=== PATIENT | female | born 1980 | race African-American/Black ===

== ENCOUNTER 2018-07-06 05:54 | Observation (INO) | payer OTHER ==
[2018-07-06] VITALS (8 sets, daily range): BP systolic 121–148; BP diastolic 54–90
[~2018-07-06] VITALS: Ht 177.8 cm; Wt 107.5 kg
[2018-07-06 06:28] LABS: BASOPHILS % 0.5 % (0.0-1.0); EOSINOPHILS # (AUTO) 0.2 (0.0-0.4); EOSINOPHILS % 3.8 % (0.0-6.0); LYMPHOCYTES # (AUTO) 1.4 (1.0-3.2); LYMPHOCYTES % 32.2 % (18.0-39.1); MEAN CORPUSCULAR HEMOGLOBIN 16.5 pg (28-32); MEAN CORPUSCULAR HGB CONC 25.6 g/dL (31-35); MEAN CORPUSCULAR VOLUME 64.2 fL (81-99); MONOCYTES # (AUTO) 0.4 (0.2-0.8); MONOCYTES % 9.9 % (4.4-11.3); NEUTROPHILS # (AUTO) 2.3 (2.1-6.9); NEUTROPHILS % 53.1 % (38.7-80.0); PLATELET COUNT 528 x10e3/uL (140-360); RED CELL DISTRIBUTION WIDTH 20.6 % (11.7-14.4)
[2018-07-06 06:31] LABS: HEMATOCRIT 19.9 % (34.2-44.1); HEMOGLOBIN 5.1 g/dL (12.0-16.0)
[2018-07-06] MEDS ORDERED: SODIUM CHLORIDE 0.9% 250ML 250 ML IV ONE (06:45)
[2018-07-06 06:51] LABS: ALANINE AMINOTRANSFERASE 11 IU/L (0-55); ALBUMIN 3.5 g/dL (3.5-5.0); ALBUMIN/GLOBULIN RATIO 1.2 (0.8-2.0); ALKALINE PHOSPHATASE 47 IU/L (40-150); ANION GAP 10.3 mmol/L (8-16); BLOOD UREA NITROGEN 7 mg/dL (7-26); BUN/CREATININE RATIO 9 (6-25); CALCIUM 8.9 mg/dL (8.4-10.2); CARBON DIOXIDE 24 mmol/L (22-29); CHLORIDE 107 mmol/L (98-107); CREATININE, SERUM 0.77 mg/dL (0.57-1.11); EST GLOMERULAR FILTRATION RATE > 60 ML/MIN (60-); GLUCOSE 87 mg/dL (74-118); POTASSIUM 3.3 mmol/L (3.5-5.1); SODIUM 138 mmol/L (136-145)
[2018-07-06 07:41] LABS: ANISOCYTOSIS MODERATE; EOSINOPHILS % (MANUAL) 4 % (0-7); HYPOCHROMASIA MODERATE; LYMPHOCYTES % (MANUAL) 24 % (19-48); MONOCYTES % (MANUAL) 10 % (3.4-9.0); NEUTROPHILS % (MANUAL) 62 % (40-74); PLATELET ESTIMATE SLIGHTLY INCREASED; PLATELET MORPHOLOGY COMMENT FEW GIANT; POIKILOCYTOSIS MODERATE; RBC MORPHOLOGY COMMENT ABNORMAL
--- NOTE | 2018-07-06 08:35 | NUR ---
Recvd patient from ER via stretcher, AAOx3, Denies any pain or SOB, skin intact, as per patient she actively not bleeding from anywhere. keep monitoring, call light in reach
--- NOTE | 2018-07-06 09:15 | NUR ---
1st unit of blood initiated , no reaction noted in first 15 min, patient resting in bed, keep monitoring
[2018-07-06] MEDS ORDERED: ONDANSETRON HCL INJ 2MG/ML 2ML 2 MG/ML VIAL IV PRN (11:45)
[2018-07-06] MEDS ORDERED: ACETAMINOPHEN 325 MG TAB PO PRN (11:45)
--- NOTE | 2018-07-06 12:05 | NUR ---
1st unit of blood finished, No adverse reaction noted, patient up in bed eating lunch, Dr Sethi here for rounds
[2018-07-06 12:11] LABS: % IRON SATURATION 2 % (15-50); IRON 11 ug/dL (50-170); TOTAL IRON BINDING CAPACITY 528 ug/dL (261-478); TRANSFERRIN 377 mg/dL (180-382)
[2018-07-06] MEDS ORDERED: POTASSIUM CHLORIDE 20 MEQ TAB CR PO NR (13:00)
[2018-07-06] MEDS ORDERED: SODIUM CHLORIDE 0.9% 250ML 250 ML ONE ×2 (13:46→20:24)
[2018-07-06] MEDS ORDERED: IRON SUCROSE 100 MG in SODIUM CHLORIDE 0.9% 100 ML 100 ML IV SCH (14:00)
--- NOTE | 2018-07-06 16:20 | NUR ---
2nd unit of blood finished , no adverse reaction noted.
[2018-07-06 18:44] LABS: HEMATOCRIT 23.3 % (34.2-44.1)
[2018-07-06 18:46] LABS: HEMOGLOBIN 6.5 g/dL (12.0-16.0)
--- NOTE | 2018-07-06 19:56 | NUR ---
REPORT RECEIVED FROM THE OUT GOING NURSE THAT HE SPOKE WITH DR BRENNAN REGARDING POST TRANSFUSION H&H RESULT OF 6.5&23.3, MD ORDER TO TRANSFUSED 1 MORE UNIT OF PRBC.
--- NOTE | 2018-07-06 20:40 | NUR ---
BLOOD TRANSFUSION STARTED, NO ADVERSE EFFECT OBSERVED. PRIMARY NURSE STAYED WITH THE PATIENT FOR CLOSE OBSERVATION PER PROTOCOL. WILL CONTINUE TO CLOSELY MONITOR.
--- NOTE | 2018-07-06 21:42 | NUR ---
PATIENT CONDITION STABLE WITHOUT DISTRESS, NO ADVERSE EFFECT OBSERVED WHILE BLOOD INFUSING.
--- NOTE | 2018-07-06 23:34 | NUR ---
BLOOD TRANSFUSION COMPLETED AT 2315, NO ADVERSE EFFECT OBSERVED AND PATIENT DENIES PAIN. CALL LIGHT WITHIN EASY REACH, SHE'S INSTRUCTED TO CALL FOR ASSISTANCE NEEDED.
--- NOTE | 2018-07-07 03:40 | NUR ---
PATIENT IS SOUNDLY ASLEEP, SHE'S EASY TO AROUSE. NO RESPIRATORY DISTRESS OBSERVED, SHE DENIES PAIN. CALL LIGHT WITHIN EASY REACH, INSTRUCTED TO CALL FOR ASSISTANCE NEEDED.
[2018-07-07 04:35] VITALS: BP 131/73
[2018-07-07 05:36] LABS: BASOPHILS % 0.7 % (0.0-1.0); EOSINOPHILS # (AUTO) 0.2 (0.0-0.4); EOSINOPHILS % 3.1 % (0.0-6.0); HEMATOCRIT 24.5 % (34.2-44.1); HEMOGLOBIN 7.1 g/dL (12.0-16.0); LYMPHOCYTES # (AUTO) 1.4 (1.0-3.2); LYMPHOCYTES % 25.9 % (18.0-39.1); MEAN CORPUSCULAR HEMOGLOBIN 19.9 pg (28-32); MEAN CORPUSCULAR VOLUME 68.6 fL (81-99); MONOCYTES # (AUTO) 0.6 (0.2-0.8); MONOCYTES % 11.3 % (4.4-11.3); NEUTROPHILS # (AUTO) 3.2 (2.1-6.9); NEUTROPHILS % 58.3 % (38.7-80.0); PLATELET COUNT 431 x10e3/uL (140-360); RED BLOOD COUNT 3.57 x10e6/uL (3.6-5.1); RED CELL DISTRIBUTION WIDTH 23.4 % (11.7-14.4)
[2018-07-07 05:57] LABS: ALANINE AMINOTRANSFERASE 6 IU/L (0-55); ALBUMIN 3.1 g/dL (3.5-5.0); ALBUMIN/GLOBULIN RATIO 1.1 (0.8-2.0); ALKALINE PHOSPHATASE 46 IU/L (40-150); ANION GAP 7.9 mmol/L (8-16); BLOOD UREA NITROGEN 5 mg/dL (7-26); BUN/CREATININE RATIO 7 (6-25); CALCIUM 8.6 mg/dL (8.4-10.2); CARBON DIOXIDE 24 mmol/L (22-29); CHLORIDE 111 mmol/L (98-107); CREATININE, SERUM 0.69 mg/dL (0.57-1.11); EST GLOMERULAR FILTRATION RATE > 60 ML/MIN (60-); GLUCOSE 83 mg/dL (74-118); POTASSIUM 3.9 mmol/L (3.5-5.1); SODIUM 139 mmol/L (136-145)
--- NOTE | 2018-07-07 06:45 | NUR ---
HANDOFF REPORT RECEIVED, PATIENT RESTING IN BED. CALL RIVERA WITHIN REACH AND BED IN LOWEST POSITION.
[2018-07-07 07:00] VITALS: BP 177/72
[2018-07-07] MEDS ORDERED: IRON SUCROSE 100 MG in SODIUM CHLORIDE 0.9% 100 ML 100 ML IV SCH (10:00)
--- NOTE | 2018-07-07 10:30 | NUR ---
PATIENT ALERT AND ORIENTED. DISCHARGE INSTRUCTIONS GIVEN, PATIENT VERBALIZED UNDERSTANDING. IV DISCONTINUED AT THIS TIME, CATHETER IN TACT AND SMALL DRESSING APPLIED. PATIENT REFUSED WHEELCHAIR ASSISTANCE AND WILL BE ESCORTED TO PERSON[facility] AUT[facility] FOR PATIENT TO DRIVE HOME
--- NOTE | 2018-07-08 03:59 | Discharge Summary ---
PRIMARY CARE DOCTOR: Dr. Camarena with [facility] FINAL DIAGNOSIS: Acute blood loss anemia due to iron deficiency anemia due to menorrhagia. SECONDARY DIAGNOSIS: Hidradenitis. CONSULTANTS: None. PROCEDURES/STUDIES PERFORMED: Right leg venous Doppler was negative for DVT. History per H and P. HOSPITAL COURSE: The patient came in with a hemoglobin of 5.1. The patient needed 3 units of blood, which brought her hemoglobin to 7.1. The patient also received two bags of Venofer. The patient knows that she needs to follow up with an CLINICAL STAFF PHARMACIST doctor. The patient will also follow up with her primary care doctor in a week. Her leg swelling is due to previous groin lymph node surgery for her hidradenitis. The patient was seen and examined today. CONDITION ON DISCHARGE: Improved. DISCHARGE MEDICATIONS: Please see medication reconciliation form. Yiching MD HANANE Cordon/ARNALDO /[id number]
== END 2018-07-07 10:34 | disposition home or self-care (01) ==
LOC: ER 05:54 → ERHOLD 06:51 → IMCU 08:17
PROVIDERS: ADMIT Internal Medicine; ATTEND Internal Medicine
DX: D62 Acute posthemorrhagic anemia (principal); D50.9 Iron deficiency anemia, unspecified; L73.2 Hidradenitis suppurativa; N92.0 Excessive and frequent menstruation with regular cycle; R60.0 Localized edema
CPT/HCPCS: 36415 ×2; 80053 ×2; 81025; 83540; 83735; 84443; 84466; 85014; 85018; 85025 ×2; 86850; 86900; 86920; 93306; 93971; 96365; 99284; G0378 ×2; J1756 ×2; J7050; P9016